=== PATIENT | male | born 1975 | race Hispanic/Latino ===

== ENCOUNTER 2023-12-11 08:45 | Inpatient (IN) | payer MEDICARE ==
[~2023-12-11] VITALS: Ht 177.8 cm; Wt 122.5 kg
[~2023-12-11 08:45] MED LIST: AMLO-258 PO; ASPI-1197 PO; ATOR40TA69 PO; CHOL200012 PO; CLON0.2T PO; DOCU-116 PO; EMPA25TA PO; GABA-529 PO; ICOS1CAP2 PO; LOSA1TAB54 PO; METF750T46 PO; METO-409 PO; POTA-200 PO; SERT-440 PO
[2023-12-11 09:28] LABS: BASOPHILS # (AUTO) 0.04 K/uL (0.00-0.20); BASOPHILS % (AUTO) 0.4 % (0.0-5.0); EOSINOPHILS # (AUTO) 0.17 K/uL (0.00-0.70); EOSINOPHILS % (AUTO) 1.8 % (0.0-8.0); HEMATOCRIT 42.2 % (42-54); IMMATURE GRANULOCYTE ABSOLUTE 0.04 K/uL (0-1); LYMPHOCYTES # (AUTO) 1.6 K/uL (1.0-4.8); MEAN CORPUSCULAR HEMOGLOBIN 28.3 pg (27.0-33.0); MEAN CORPUSCULAR HGB CONC 34.4 g/dL (32.0-36.0); MEAN CORPUSCULAR VOLUME 82.3 fL (79-99); MONOCYTES # (AUTO) 0.6 K/uL (0.1-1.0); MONOCYTES % (AUTO) 6.3 % (3.0-13.0); NEUTROPHILS # (AUTO) 6.8 K/uL (1.8-7.7); NEUTROPHILS % (AUTO) 74.1 % (40.0-77.0); PLATELET COUNT (AUTO) 288 K/uL (130-400); RED BLOOD CELL COUNT(AUTO) 5.13 MIL/uL (4.50-6.20); RED CELL DISTRIBUTION WIDTH 13.2 % (11.0-15.5); WHITE BLOOD COUNT (AUTO) 9.2 K/uL (4.8-10.8)
[2023-12-11 09:40] LABS: CREATININE 1.1 mg/dL (0.5-1.3)
[2023-12-11] MEDS: PoTASSium BIcarbonate/CIT AC 25 MEQ TABLET.EFF PO ONE (10:18)
[2023-12-11] MEDS: VANCOMYCIN KIT 1 GM/250 ML IV.KIT IV SCH ×2 (10:18→15:23)
[2023-12-11] MEDS: hydroMORPHone 0.5 MG SYG (0.5MG/0.5ML) IM ONE (10:56)
[2023-12-11] MEDS ORDERED: IOHEXOL-350 75 ML VIAL IV ONE (11:09)
[2023-12-11] MEDS ORDERED: VANCOMYCIN PROTOCOL PER PHARMACY IV SCH (11:30)
[2023-12-11] MEDS ORDERED: ketOROlac 15MG/ML VIAL (15MG/ML) IV PRN (11:30)
[2023-12-11] MEDS ORDERED: acetaMINOPHEN 500 MG TABLET PO PRN (11:30)
[2023-12-11] MEDS: 0.9%NACL 1000ML 1,000 ML IV SCH (11:36)
[2023-12-11] MEDS: CEFTRIAXONE 2GM VIAL IVPB SCH (11:36)
[2023-12-11 11:47] LABS: HEMOGLOBIN A1C 10.2 % (4.0-6.0)
[2023-12-11 11:51] LABS: THYROID STIMULATING HORMONE 1.71 uIU/mL (0.36-3.74)
[2023-12-11 12:23] LABS: INR 1.03 (0.85-1.15); PROTHROMBIN TIME 11.1 SEC (9.6-11.6)
[2023-12-11 12:25] LABS: PARTIAL THROMBOPLASTIN TIME 31.2 SEC (26.3-35.5)
[2023-12-11] MEDS: INSULIN humuLIN R 100 UNIT/ML 3ML SQ SCH (13:11)
[2023-12-11] MEDS ORDERED: CLOP75TA32 PO (15:03)
[2023-12-11 15:14] VITALS: BP 178/83; PULSE 58; RESP 19; TEMP 98.1
[2023-12-11 15:15] VITALS: O2SAT 95
[2023-12-11] MEDS: morPHINE 2 MG SYG IVP PRN (15:22)
[2023-12-11] MEDS: PoTASSium chloRIDE 20MEQ ER 20 MEQ ERTAB PO PRN (15:24)
[2023-12-11] MEDS ORDERED: PoTASSium chl 10% ELIXIR 20MEQ 20 MEQ/15 ML UDCUP PO PRN (15:30)
[2023-12-11] MEDS ORDERED: PoTASSium chloRIDE 20MEQ ER 20 MEQ ERTAB PO PRN (15:30)
[2023-12-11] MEDS ORDERED: PoTASSium chloRIDE 20MEQ/100ML 100 ML IV PRN (15:30)
[2023-12-11] MEDS ORDERED: MAGNESIUM 2GM PREMIX 50ML 50 ML IV PRN (15:30)
[2023-12-11 16:00] VITALS: BP 173/92; PULSE 62; RESP 19; TEMP 98.1
[2023-12-11] MEDS: hydrALAZine 25MG TABLET PO ONE (16:17)
[2023-12-11 16:24] LABS: AMPHET/METH SCREEN,URINE NEGATIVE (NEGATIVE); BARBITURATE SCREEN, URINE NEGATIVE (NEGATIVE); BENZODIAZEPINES SCREEN,URINE NEGATIVE (NEGATIVE); CANNABINOID SCREEN,URINE NEGATIVE (NEGATIVE); COCAINE SCREEN,URINE NEGATIVE (NEGATIVE); OPIATE SCREEN,URINE NEGATIVE (NEGATIVE); PHENCYCLIDINE SCREEN,URINE NEGATIVE (NEGATIVE)
[2023-12-11 19:11] VITALS: O2SAT 97
[2023-12-11 19:48] VITALS: BP 187/101; PULSE 65; RESP 18; TEMP 98.4
[2023-12-11] MEDS: FAMOTIDINE 20MG TAB PO SCH (20:51)
[2023-12-11] MEDS: GABApentin 100 MG CAPSULE PO SCH (20:52)
[2023-12-11] MEDS: cloNIDine HCL 0.2 MG TABLET PO SCH (20:52)
[2023-12-11] MEDS: INSULIN GLARgine 100 UNITS/ML 10 ML VIAL SQ SCH (20:59)
[2023-12-11] MEDS: ICOSAPENT ETHYL 2 GM PO SCH (21:00)
[2023-12-11 23:32] VITALS: BP 169/18; PULSE 56; RESP 18; TEMP 98.2
[2023-12-12] VITALS (9 sets, daily range): BP systolic 168–180; BP diastolic 76–93; PULSE 53–72; RESP 18–21; TEMP 97.8–98.4; O2SAT 96–97
[2023-12-12 06:12] LABS: BASOPHILS # (AUTO) 0.03 K/uL (0.00-0.20); BASOPHILS % (AUTO) 0.3 % (0.0-5.0); EOSINOPHILS # (AUTO) 0.26 K/uL (0.00-0.70); EOSINOPHILS % (AUTO) 2.9 % (0.0-8.0); IMMATURE GRANULOCYTE ABSOLUTE 0.03 K/uL (0-1); LYMPHOCYTES # (AUTO) 1.6 K/uL (1.0-4.8); LYMPHOCYTES % (AUTO) 18.3 % (21.0-51.0); MEAN CORPUSCULAR HEMOGLOBIN 27.9 pg (27.0-33.0); MEAN CORPUSCULAR HGB CONC 33.3 g/dL (32.0-36.0); MEAN CORPUSCULAR VOLUME 83.9 fL (79-99); MONOCYTES # (AUTO) 0.7 K/uL (0.1-1.0); NEUTROPHILS # (AUTO) 6.3 K/uL (1.8-7.7); NEUTROPHILS % (AUTO) 70.2 % (40.0-77.0); PLATELET COUNT (AUTO) 245 K/uL (130-400); RED BLOOD CELL COUNT(AUTO) 4.77 MIL/uL (4.50-6.20); RED CELL DISTRIBUTION WIDTH 13.3 % (11.0-15.5)
[2023-12-12 06:22] LABS: CREATININE 0.9 mg/dL (0.5-1.3)
[2023-12-12 07:06] LABS: POTASSIUM 2.9 mmol/L (3.5-5.1)
[2023-12-12] MEDS: ASPIRIN 81MG CHEW TAB PO SCH (08:39)
[2023-12-12] MEDS: cloPIDOgrel 75MG TAB PO SCH (08:39)
[2023-12-12] MEDS: SERTraline HCL 50 MG TABLET PO SCH (08:39)
[2023-12-12] MEDS: LoSARTan 100 MG TABLET PO SCH (08:40)
[2023-12-12] MEDS: hydroCHLOROthiazide 25 MG TABLET PO SCH (08:41)
[2023-12-12] MEDS: metOPROLol sucCINATE 50 MG TAB.SR.24H PO SCH (08:41)
[2023-12-12] MEDS: atorVAStatin 40 MG TABLET PO SCH (08:41)
[2023-12-12] MEDS: hydrALAZine 20MG/ML VIAL IV PRN (16:43)
[2023-12-12] MEDS: INSULIN humuLIN R 100 UNIT/ML 3ML SQ SCH (19:50)
[2023-12-13] VITALS (7 sets, daily range): BP systolic 145–176; BP diastolic 73–99; PULSE 55–65; RESP 19–22; TEMP 98–98.4; O2SAT 95
[2023-12-13 08:43] LABS: BASOPHILS # (AUTO) 0.04 K/uL (0.00-0.20); BASOPHILS % (AUTO) 0.4 % (0.0-5.0); EOSINOPHILS % (AUTO) 2.2 % (0.0-8.0); HEMATOCRIT 41.6 % (42-54); IMMATURE GRANULOCYTE ABSOLUTE 0.04 K/uL (0-1); LYMPHOCYTES # (AUTO) 1.5 K/uL (1.0-4.8); LYMPHOCYTES % (AUTO) 16.2 % (21.0-51.0); MEAN CORPUSCULAR HEMOGLOBIN 27.8 pg (27.0-33.0); MEAN CORPUSCULAR HGB CONC 33.2 g/dL (32.0-36.0); MEAN CORPUSCULAR VOLUME 83.7 fL (79-99); MONOCYTES # (AUTO) 0.6 K/uL (0.1-1.0); MONOCYTES % (AUTO) 6.6 % (3.0-13.0); NEUTROPHILS # (AUTO) 6.6 K/uL (1.8-7.7); NEUTROPHILS % (AUTO) 74.2 % (40.0-77.0); PLATELET COUNT (AUTO) 282 K/uL (130-400); RED BLOOD CELL COUNT(AUTO) 4.97 MIL/uL (4.50-6.20); RED CELL DISTRIBUTION WIDTH 13.4 % (11.0-15.5); WHITE BLOOD COUNT (AUTO) 8.9 K/uL (4.8-10.8)
[2023-12-13 08:58] LABS: ALBUMIN 2.9 g/dL (3.5-5.0); BILIRUBIN,TOTAL 0.5 mg/dL (0.2-1.0); CREATININE 0.9 mg/dL (0.5-1.3); TOTAL PROTEIN, SERUM 7.2 g/dL (6.0-8.3)
[2023-12-13 09:03] LABS: POTASSIUM 2.9 mmol/L (3.5-5.1)
[2023-12-13] MEDS: amLODIPine 5 MG TAB PO SCH (09:46)
[2023-12-13] MEDS: PoTASSium chl 10% ELIXIR 20MEQ 20 MEQ/15 ML UDCUP PO PRN (09:47)
[2023-12-13 13:27] LABS: MAGNESIUM 2.3 mg/dL (1.80-2.40)
[2023-12-14] VITALS: BP 175/77; PULSE 50; RESP 20; TEMP 98.1
[2023-12-14 04:00] VITALS: BP 168/94; PULSE 58; RESP 20; TEMP 97.8
[2023-12-14 05:15] LABS: BASOPHILS # (AUTO) 0.03 K/uL (0.00-0.20); BASOPHILS % (AUTO) 0.3 % (0.0-5.0); EOSINOPHILS # (AUTO) 0.28 K/uL (0.00-0.70); HEMATOCRIT 39.8 % (42-54); IMMATURE GRANULOCYTE ABSOLUTE 0.03 K/uL (0-1); LYMPHOCYTES # (AUTO) 1.8 K/uL (1.0-4.8); LYMPHOCYTES % (AUTO) 18.6 % (21.0-51.0); MEAN CORPUSCULAR HEMOGLOBIN 27.7 pg (27.0-33.0); MEAN CORPUSCULAR HGB CONC 33.2 g/dL (32.0-36.0); MEAN CORPUSCULAR VOLUME 83.6 fL (79-99); MONOCYTES # (AUTO) 0.8 K/uL (0.1-1.0); MONOCYTES % (AUTO) 8.8 % (3.0-13.0); NEUTROPHILS # (AUTO) 6.5 K/uL (1.8-7.7); PLATELET COUNT (AUTO) 291 K/uL (130-400); RED BLOOD CELL COUNT(AUTO) 4.76 MIL/uL (4.50-6.20); RED CELL DISTRIBUTION WIDTH 13.4 % (11.0-15.5); WHITE BLOOD COUNT (AUTO) 9.4 K/uL (4.8-10.8)
[2023-12-14 05:42] LABS: ALBUMIN 2.9 g/dL (3.5-5.0); BILIRUBIN,TOTAL 0.4 mg/dL (0.2-1.0); CREATININE 0.8 mg/dL (0.5-1.3); MAGNESIUM 2.2 mg/dL (1.80-2.40); TOTAL PROTEIN, SERUM 7.2 g/dL (6.0-8.3)
[2023-12-14 05:54] LABS: POTASSIUM 2.8 mmol/L (3.5-5.1)
[2023-12-14] MEDS: PoTASSium chloRIDE 20MEQ/100ML 100 ML IV PRN (05:59)
[2023-12-14 07:20] VITALS: BP 184/97; PULSE 68; RESP 20; TEMP 98.3
[2023-12-14 08:00] VITALS: O2SAT 100
[2023-12-14] MEDS: GABAPENTIN 300 MG CAPSULE PO SCH (08:23)
[2023-12-14 11:53] VITALS: BP 180/84; PULSE 54; RESP 20; TEMP 98
== END 2023-12-14 14:55 | disposition home or self-care (01) | DRG 603 ==
LOC: EDH 08:45 → EDHIP 11:01 → 4DH 15:30
PROVIDERS: ADMIT Internal Medicine; ATTEND Internal Medicine
PROC: 0W9F3ZZ Drainage of Abdominal Wall, Percutaneous Approach (ICD-10-PCS; principal; 2023-12-11)
DX: L03.311 Cellulitis of abdominal wall (principal); L02.211 Cutaneous abscess of abdominal wall; E11.65 Type 2 diabetes mellitus with hyperglycemia; E87.6 Hypokalemia; E66.01 Morbid (severe) obesity due to excess calories; I10 Essential (primary) hypertension; B95.62 Methicillin resistant Staphylococcus aureus infection as the cause of diseases classified elsewhere; E78.00 Pure hypercholesterolemia, unspecified; F32.A Depression, unspecified; F41.9 Anxiety disorder, unspecified; K59.00 Constipation, unspecified; Z79.4 Long term (current) use of insulin; Z79.82 Long term (current) use of aspirin; Z68.38 Body mass index [BMI] 38.0-38.9, adult; Z83.3 Family history of diabetes mellitus; Z86.14 Personal history of Methicillin resistant Staphylococcus aureus infection; Z86.73 Personal history of transient ischemic attack (TIA), and cerebral infarction without residual deficits
CPT/HCPCS: 36415; 74177; 76705; 80048; 80053; 80202; 80305; 82607; 82948; 83036; 83605; 83735; 84132; 84145; 84443; 85025; 85610; 85730; 86140; 87040; 87070; 87076; 87086; 87186; 93005; G0378; J0360; J0696; J1171; J1815; J2270; J3370; J3480; Q9967

== ENCOUNTER 2024-12-14 15:16 | Emergency (ER) | payer MEDICARE ==
[~2024-12-14] VITALS: Ht 177.8 cm; Wt 120.7 kg
[~2024-12-14 15:16] MED LIST changes: -AMLO-258 PO; -CHOL200012 PO; +CLOP75TA32 PO; -DOCU-116 PO
[2024-12-14 15:23] VITALS: BP 166/88; PULSE 57; RESP 18; TEMP 99; O2SAT 94
[2024-12-14 15:52] LABS: IMMATURE GRANULOCYTE ABSOLUTE 0.01 K/uL (0-1); NUCLEATED RED BLOOD CELLS 0.0 % (0.0-0.19); PLATELET COUNT (AUTO) 279 K/uL (130-400); RED BLOOD CELL COUNT(AUTO) 5.30 MIL/uL (4.50-6.20); RED CELL DISTRIBUTION WIDTH 13.1 % (11.0-15.5); WHITE BLOOD COUNT (AUTO) 6.7 K/uL (4.8-10.8)
[2024-12-14 16:15] LABS: CREATININE 0.8 mg/dL (0.5-1.3); GLOMERULAR FILTR. RATE CALC 109.0 mL/min (>90); GLUCOSE,RANDOM 283.0 mg/dL (70-105); SODIUM SERUM 143.0 mmol/L (136-145); UREA NITROGEN, BLOOD 10.0 mg/dL (7-18)
[2024-12-14] MEDS ORDERED: SULF1TAB42 PO (16:59)
--- NOTE | 2024-12-14 17:01 | ERN ---
ED Note History of Present Illness Stated Complaint: ABSCESS Chief Complaint: Skin Rash/Abscess Time Seen by MD: 15:19 Time Seen by Midlevel: 15:20 Dictation: 49-year-old male history of hypertension and diabetes coming in with complaints of an abscess/cellulitis to the neck area and occipital area. Patient states he has had abscess in the past in the same area. Patient states this flare-up released started two days ago. Denies having any fever nausea or vomiting. Allergies: Coded Allergies: No Known Drug Allergies (Verified Allergy, Unknown, 12/11/23) Home Meds Reported Medications Clopidogrel Bisulfate (Clopidogrel) 75 Mg Tablet, 1 TAB PO DAILY for 30 Days, #30 TAB 0 Refills 12/11/23 Empagliflozin (Jardiance) 25 Mg Tablet, 25 MG PO DAILY, TAB 09/13/23 Atorvastatin Calcium (LIPITOR) 80 Mg Tablet, 80 MG PO DAILY, TAB 09/13/23 Potassium Chloride (Potassium Chloride) 10 Meq Tab.er.prt, 10 MEQ PO BIDMEALS 09/13/23 Gabapentin (Gabapentin) 100 Mg Capsule, 300 MG PO TID, CAP 09/13/23 Metformin HCl (Metformin HCl ER) 750 Mg Tab.er.24h, 750 MG PO DAILYDINNER, TAB 09/13/23 Losartan/Hydrochlorothiazide (Losartan-Hctz 100-25 mg Tab) 100 Mg-25 Mg Tablet, 1 EACH PO DAILY, TAB 09/13/23 Clonidine HCl (Clonidine HCl) 0.2 Mg Tablet, 0.2 MG PO BID, TAB 09/13/23 Icosapent Ethyl (Icosapent Ethyl) 1 Gram Capsule, 2 GM PO BID, CAP 09/13/23 Metoprolol Succinate (Metoprolol Succinate) 100 Mg Tab.er.24h, 100 MG PO DAILY, TAB 09/13/23 Sertraline HCl (Sertraline HCl) 100 Mg Tablet, 100 MG PO DAILY, TAB 09/13/23 Aspirin (Aspirin) 81 Mg Tab.chew, 81 MG PO DAILY, TAB.CHEW 09/13/23 Past Medical History Past Medical History: Anxiety, Depression, Diabetes-Type II, Hypertension Surgical History: Other Surgical History Other: i/d to head and neck Review of System Dictation Constitutional: Negative for fever,chills, and weight loss Eyes: Negative for injury, pain,redness, and discharge ENT: Negative for injury,pain or swelling Cardiovascular: Negative for chest pain, palpitations, and edema Respiratory: Negative for shortness of breath, cough, and wheezing, Abdomen/GI: Negative for abdominal pain, nausea, vomiting, diarrhea, and constipation Back: Negative for injury and pain : Negative for injury, bleeding and discharge MS/Extremity: Negative for injury and deformity Skin: Negative for rash, and discoloration, abscess or cellulitis on the left side of the neck and occipital area Neuro: Negative for headache, weakness, numbness, tingling, and seizure Psych: Negative for suicide ideation, homicidal ideation, and hallucinations Review of Systems: was completed Initial Vital Sign VS Vital Signs Date Time Temp Pulse Resp B/P (MAP) Pulse Ox O2 Delivery O2 Flow Rate FiO2 12/14/24 15:20 99.0 57 18 166/88 94 Room Air 0 12/14/24 15:23 21 Physical Exam Dictation General: awake, alert, NAD Head/Face: Normocephalic, atraumatic Eyes: PERRL, EOMI, vision at baseline ENT: oral cavity clear, TMs clear, no signs of infection Neck: Trachea midline, supple, no nuchal rigidity Cardiovascular: RRR, normal S1/S2, No MRGs, no JVD Respiratory: CTAB, no respiratory distress, No rales or wheezes Abdomen: Soft, non-tender, non-distended, normal bowel sounds, no guarding or rebound. Skin: Warm, dry, normal turgor, no rash, the lesion on the occipital areas medically raised, erythematous bump with surrounding hair thinning, there is some scabbing and minimal surrounding erythema. The posterior neck shows a circular area with central ulceration and crusting started by slightly erythematous indurated g. No obvious active drainage or fluctuance Neuro: COAx4, GCS 15, strength 5/5, CN 2-12 intact, normal cerebellar exam, normal gait, Psych: Normal behavior, mood, and affect normal Results (Laboratory/Radiology) Laboratory/Radiology Laboratory Tests Test 12/14/24 15:42 White Blood Count 6.7 K/uL (4.8-10.8) Red Blood Count 5.30 MIL/uL (4.50-6.20) Hemoglobin 15.4 g/dL (14.0-18.0) Hematocrit 45.3 % (42-54) Mean Corpuscular Volume 85.5 fL (79-99) Mean Corpuscular Hemoglobin 29.1 pg (27.0-33.0) Mean Corpuscular Hemoglobin Concent 34.0 g/dL (32.0-36.0) Red Cell Distribution Width 13.1 % (11.0-15.5) Platelet Count 279 K/uL (130-400) Mean Platelet Volume 9.1 fL (7.5-10.5) Immature Granulocyte % (Auto) 0.1 % (0-1) Neutrophils (%) (Auto) 62.4 % (40.0-77.0) Lymphocytes (%) (Auto) 27.5 % (21.0-51.0) Monocytes (%) (Auto) 5.7 % (3.0-13.0) Eosinophils (%) (Auto) 4.0 % (0.0-8.0) Basophils (%) (Auto) 0.3 % (0.0-5.0) Neutrophils # (Auto) 4.2 K/uL (1.8-7.7) Lymphocytes # (Auto) 1.8 K/uL (1.0-4.8) Monocytes # (Auto) 0.4 K/uL (0.1-1.0) Eosinophils # (Auto) 0.27 K/uL (0.00-0.70) Basophils # (Auto) 0.02 K/uL (0.00-0.20) Absolute Immature Granulocyte (auto 0.01 K/uL (0-1) Nucleated Red Blood Cells 0.0 % (0.0-0.19) Sodium Level 143 mmol/L (136-145) Potassium Level 3.0 mmol/L (3.5-5.1) *L Chloride Level 103 mmol/L (101-111) Carbon Dioxide Level 29 mmol/L (21-32) Blood Urea Nitrogen 10 mg/dL (7-18) Creatinine 0.8 mg/dL (0.5-1.3) Glomerular Filtration Rate Calc 109 mL/min (>90) Random Glucose 283 mg/dL (70-105) H Total Calcium 8.8 mg/dL (8.5-10.1) Labs Reviewed?: Yes ED Course ED Course Orders Procedure Category Date Status Time Cbc With Differential LAB 12/14/24 Complete 15:28 Basic Metabolic Panel LAB 12/14/24 Complete 15:28 Us Soft Tissue Neck US 12/14/24 Taken 15:28 Potassium Bicarb/Cit PHA 12/14/24 In Process Ac 25meq (K-Lyte Ta 16:35 Current Medications Medications (Trade) Dose Ordered Sig/Jayme Route PRN Reason Start Time Stop Time Status Last Admin Dose Admin Potassium Bicarbonate (K-Lyte Tablet Eff 25 Meq Tablet.eff) 50 meq ONCE PO 12/14/24 16:35 12/14/24 18:35 Vital Signs Date Time Temp Pulse Resp B/P (MAP) Pulse Ox O2 Delivery O2 Flow Rate FiO2 12/14/24 15:23 99.0 57 18 166/88 94 Room Air* 0 21 12/14/24 15:20 99.0 57 18 166/88 94 Room Air 0 Medical Decision Making MDM MDM: 49-year-old male history of hypertension and diabetes coming in with complaints of an abscess/cellulitis to the neck area and occipital area. Pat ient states he has had abscess in the past in the same area. Patient states this flare-up released started two days ago. Denies having any fever nausea or vomiting. CBC shows no leukocytosis, no anemia, no thrombocytopenia. Chemistry just shows potassium of 3.0. Replacement given in the emergency room. Also blood sugar is 283. Normal kidney function. Ulcer sound of the soft tissue neck is showing a left posterior7 x 6 x 5 mm possible abscess with surrounding fat stranding and subcutaneous fat stranding on the occipital area consistent with cellulitis. I looked back in patient's previous visit specifically microbiology where they cultured the wound last year. Patient was positive for MRSA in the wound. My plan was to give Bactrim at home, based on the susceptibility to report last year there is no resistant to Bactrim. Patient will be sent home on Bactrim with strict return precautions. Educated on wound care, and educated on signs and symptoms of when to return back to the ER. Patient verbalized understanding, answered all questions.This case was discussed with ER MD, reviewed labs and imagine. OK for patient to be sent home on PO antibotic. Differential diagnosis: Rationale: Tests considered and ordered secondary to shared decision making include: Previous outside records reviewed: Old ER visits. Risk of complication and/or morbidity or mortality of patient management: None Medications-Per medication reconciliation Need for hospitalization: Patient does not meet criteria for hospitalization. Need for emergency major/minor surgery: No There are no social concerns with this patient. Prescription drug management Prescriptions will include symptomatic care Patient's prior external medical records from other ER visits were reviewed by me as indicated. Prior testing and results from previous visits were reviewed. Prior tests were taken into account with medical decision making and resource utilization, independent historian/historians were used to obtain complete medical history. I independently interpreted the test that were performed, results were reviewed by me and considered findings on radiology if ordered. Medical management and examination interpretation discussions were had by me with other qualified healthcare professionals as indicated for the patient's care. DX & DISP Disposition: Discharge Departure Impression: Primary Impression: Cellulitis of neck Condition: Stable Scripts Sulfamethoxazole/Trimethoprim (Bactrim Ds Tablet) 800 Mg-160 Mg Tablet 1 TAB PO BID for 7 Days, #14 TAB 0 Refills Prov: HARRIET ACOSTA 12/14/24 Additional Instructions: You can apply warm compresses to the area affected and possibly help with drainage. Complete the dose of antibiotics and follow up with your primary doctor. Keep your blood sugar under control. Return to the hospital if you develop any fevers, nausea or vomiting. Referrals: SELF,REFERRAL (PCP) Time of Disposition: 16:59 I have reviewed the case, and I agree with, Diagnosis and Plan HARRIET ACOSTA Dec 14, 2024 17:01
--- NOTE | 2024-12-14 18:16 | NUR ---
PT BROUGHT INTO [facility] AT THIS TIME FOR MED PASS AND DC INSTUCTIONS. PT REFUSED POTASSIUM SUPPLEMENT AND STATES HE ALREADY TAKES POTASSIUM AT HOME. ER PROVIDER MADE AWARE.
--- NOTE | 2024-12-15 13:09 | HMCIMG ---
Posterior scalp ULTRASOUND INDICATION: Rule out abscess cellulitis COMPARISON: None TECHNIQUE: Multiplanar sonographic images of the left posterior scalp were obtained earlier in real-time using grayscale and color Doppler technique, and subsequently made available for review. FINDINGS/IMPRESSION: Left posterior scalp ULTRASOUND INDICATION: COMPARISON: None TECHNIQUE: Multiplanar sonographic images of the left posterior scalp were obtained earlier in real-time using grayscale and color Doppler technique, and subsequently made available for review. FINDINGS/IMPRESSION: Study demonstrate posterior disc scalp this subcutaneous fat stranding with shadowing suggesting of prior cellulitis. On the right side posteriorly there is a hypoechoic irregular lesion possibly a phlegmon measuring 0.7 x 0.6 x 0.5 cm.
== END 2024-12-14 18:17 | disposition home or self-care (01) ==
LOC: EDH 15:16
DX: L03.221 Cellulitis of neck (principal); E11.9 Type 2 diabetes mellitus without complications; F32.A Depression, unspecified; F41.9 Anxiety disorder, unspecified; I10 Essential (primary) hypertension; Z79.02 Long term (current) use of antithrombotics/antiplatelets; Z79.82 Long term (current) use of aspirin; Z79.84 Long term (current) use of oral hypoglycemic drugs; Z79.899 Other long term (current) drug therapy
CPT/HCPCS: 36415; 76536; 80048; 85025; 99284